=== PATIENT | female | born 1945 | race Caucasian/White ===

== ENCOUNTER 2019-06-17 19:49 | Emergency (ER) | payer OTHER, MEDICAID ==
[~2019-06-17] VITALS: Ht 162.6 cm; Wt 68.0 kg
[2019-06-17 20:03] VITALS: BP_SYST 150
--- NOTE | 2019-06-17 20:03 | NUR ---
Patient triaged and placed in ER [facility] w/ ems gurney. VSS and patient appears in no acute distress at this time. Accompanied by ems, awaiting available bed, and MD notified of need for MSE.
[2019-06-17 20:41] LABS: BASOPHILS # (AUTO) 0.1 K/uL (0.0-0.2); BASOPHILS % (AUTO) 0.7 % (0.0-2.0); EOSINOPHILS # (AUTO) 0.2 K/uL (0.0-0.4); EOSINOPHILS % (AUTO) 1.6 % (0.0-4.0); HEMATOCRIT 42.2 % (36-48); HEMOGLOBIN 13.6 g/dL (12.0-16.0); LYMPHOCYTES # (AUTO) 3.5 K/uL (1.0-5.5); LYMPHOCYTES % (AUTO) 26.5 % (20.5-51.5); MEAN CORPUSCULAR HEMOGLOBIN 32 pg (27-31); MEAN CORPUSCULAR HGB CONC 32 % (32-36); MEAN CORPUSCULAR VOLUME 99 fL (79.0-98.0); MONOCYTES # (AUTO) 1.1 K/uL (0.0-1.0); MONOCYTES % (AUTO) 8.3 % (1.7-9.3); NEUTROPHILS # (AUTO) 8.3 K/uL (1.8-7.7); NEUTROPHILS % (AUTO) 62.9 % (40.0-70.0); PLATELET COUNT (AUTO) 337 K/uL (130-430); RED BLOOD CELL COUNT(AUTO) 4.28 MIL/uL (4.2-6.2); RED CELL DISTRIBUTION WIDTH 16.8 % (9.0-15.0); WHITE BLOOD COUNT (AUTO) 13.2 K/uL (4.8-10.8)
[2019-06-17 20:55] LABS: ANION GAP 10 (5-15); CALCIUM 9.1 mg/dL (8.4-11.0); CHLORIDE 99 mmol/L (98-107); CREATININE 0.94 mg/dL (0.55-1.30); GLUCOSE 107 mg/dL (70-99); POTASSIUM 4.7 mmol/L (3.5-5.1); SODIUM SERUM 135 mmol/L (136-145); UREA NITROGEN, BLOOD 25 mg/dL (8-21)
[2019-06-17 20:59] LABS: ALANINE AMINOTRANSFERASE 7 U/L (12-78); ALBUMIN 3.3 g/dL (3.4-4.8); ASPARTATE AMINOTRANSFERASE 13 U/L (10-37); CHOLESTEROL 142 mg/dL (<200); HDL CHOLESTEROL 45 mg/dL (>55); LDL CHOLESTEROL 64 mg/dL (<100); TOTAL BILIRUBIN 0.3 mg/dL (0.0-1.0); TRIGLYCERIDES 105 mg/dL (30-150)
--- NOTE | 2019-06-17 21:00 | NUR ---
Patient to ER bed 06 to gown for evaluation. Side rails up.
--- NOTE | 2019-06-17 21:00 | NUR ---
Report given to nurse Briones.
--- NOTE | 2019-06-17 21:00 | NUR ---
Pt brought in by ambulance, alert, agitated, confused, disoriented. Pt coming from custodial facility [facility], being transferred to [facility]. pt here at [facility] for medical clearance. Staff at [facility] transitional care states that patient has been non-compliant with care, agitated, combative with staff and other residents, having multiple uncontrolled outbursts and inconsolable shouting fits. Pt presents with no pain, nausea, vomiting, diarrhea, shortness of breath, chest pain, no medical complaint at this time.
[2019-06-17 21:12] LABS: ACETAMINOPHEN < 1 ug/mL (1-30); ALCOHOL, BLOOD < 3 mg/dL (<10)
--- NOTE | 2019-06-17 21:30 | NUR ---
Pt screaming inconsolably. refusing care.
--- NOTE | 2019-06-17 22:00 | NUR ---
Pt attempting to get out of bed, screaming at staff, other patients. pt safely redirected.
--- NOTE | 2019-06-17 22:41 | NUR ---
Pt attempted to get out of bed, throwing things at staff.
--- NOTE | 2019-06-17 23:34 | NUR ---
Pt screaming at staff, patients. pt redirected.
--- NOTE | 2019-06-17 23:56 | NUR ---
Pt screaming at staff, patients, throwing sheets and clothin on floor. Pt redirected safely.
--- NOTE | 2019-06-18 00:35 | NUR ---
Patient to be transferred to [facility]. Is being transferred due to higher level of care. Receiving facility has accepting physician and available space. ER physician has signed transfer form. Patient or responsible constitution party has agreed to transfer and signed form. Patient belongings inventoried and will be sent with patient. Copy of nursing notes, lab reports, EKG, Physicians Orders and X-rays to be sent with patient. Report called to Kristen at receiving facility. Receiving physician is Roberto/Hyun. Ambulance os on scene for transfer
[2019-06-18 00:39] VITALS: BP_SYST 133
--- NOTE | 2019-06-18 00:39 | NUR ---
EMS crew loaded patient without incident, report given to ems crew. Copy of all tests, results given.
== END 2019-06-18 00:39 ==
LOC: SED 19:49
DX: F29 Unspecified psychosis not due to a substance or known physiological condition (principal); N39.0 Urinary tract infection, site not specified; F31.9 Bipolar disorder, unspecified; R45.1 Restlessness and agitation; Z88.0 Allergy status to penicillin
CPT/HCPCS: 36415; 80053; 80061; 83036; 85025; 87081; 99285; G0480; G0481; G0482

== ENCOUNTER 2019-06-22 17:47 | Inpatient (IN) | payer OTHER, MEDICAID, SELFPAY ==
[~2019-06-22] VITALS: Ht 167.6 cm; Wt 86.6 kg
[2019-06-22 17:47] VITALS: BP_SYST 148
[2019-06-22] MEDS ORDERED: NS 500 ML IV ONE (18:15)
[2019-06-22] MEDS ORDERED: MAG-123 PO (18:21)
[2019-06-22] MEDS ORDERED: ACET-2165 PO (18:21)
[2019-06-22] MEDS ORDERED: METF500S7 PO (18:21)
[2019-06-22] MEDS ORDERED: ACET-73 PO (18:21)
[2019-06-22] MEDS ORDERED: ASCO500T20 PO (18:21)
[2019-06-22] MEDS ORDERED: ZOLP5TAB2 PO (18:21)
[2019-06-22] MEDS ORDERED: GLUC1KIT IJ (18:21)
[2019-06-22] MEDS ORDERED: GLIP5TAB26 PO (18:21)
[2019-06-22] MEDS ORDERED: LORA2TAB PO (18:21)
[2019-06-22] MEDS ORDERED: LACT1CAP72 PO (18:21)
[2019-06-22] MEDS ORDERED: DIVA500T4 PO (18:21)
[2019-06-22] MEDS ORDERED: SENN-278 PO (18:21)
[2019-06-22] MEDS ORDERED: MOM PO (18:21)
[2019-06-22] MEDS ORDERED: INSU100V42 (18:21)
[2019-06-22] MEDS ORDERED: CEPH-568 PO (18:21)
[2019-06-22] MEDS ORDERED: RISP0.5T5 PO (18:21)
[2019-06-22 18:49] LABS: BASOPHILS % (AUTO) 0.2 % (0.0-2.0); EOSINOPHILS # (AUTO) 0.1 K/uL (0.0-0.4); EOSINOPHILS % (AUTO) 0.9 % (0.0-4.0); HEMATOCRIT 43.3 % (36-48); LYMPHOCYTES # (AUTO) 1.9 K/uL (1.0-5.5); LYMPHOCYTES % (AUTO) 18.2 % (20.5-51.5); MEAN CORPUSCULAR HEMOGLOBIN 32 pg (27-31); MEAN CORPUSCULAR HGB CONC 32 % (32-36); MEAN CORPUSCULAR VOLUME 99 fL (79.0-98.0); MONOCYTES # (AUTO) 0.9 K/uL (0.0-1.0); MONOCYTES % (AUTO) 8.3 % (1.7-9.3); NEUTROPHILS # (AUTO) 7.5 K/uL (1.8-7.7); NEUTROPHILS % (AUTO) 72.4 % (40.0-70.0); PLATELET COUNT (AUTO) 334 K/uL (130-430); RED BLOOD CELL COUNT(AUTO) 4.39 MIL/uL (4.2-6.2); WHITE BLOOD COUNT (AUTO) 10.3 K/uL (4.8-10.8)
[2019-06-22 19:02] LABS: ANION GAP 9 (5-15); CALCIUM 9.6 mg/dL (8.4-11.0); CHLORIDE 101 mmol/L (98-107); CREATININE 1.32 mg/dL (0.55-1.30); GLUCOSE 163 mg/dL (70-99); POTASSIUM 4.4 mmol/L (3.5-5.1); SODIUM SERUM 138 mmol/L (136-145); UREA NITROGEN, BLOOD 22 mg/dL (8-21)
[2019-06-22 19:11] LABS: ALANINE AMINOTRANSFERASE 44 U/L (12-78); ALBUMIN 3.5 g/dL (3.4-4.8); ASPARTATE AMINOTRANSFERASE 17 U/L (10-37); TOTAL BILIRUBIN 0.4 mg/dL (0.0-1.0)
[2019-06-22] MEDS ORDERED: LORazepam 2 MG/ML VIAL IVP ONE ×2 (19:15→22:00)
[2019-06-22 19:21] LABS: BILIRUBIN,URINE NEGATIVE (NEGATIVE); BLOOD, URINE NEGATIVE (NEGATIVE); COLOR,URINE YELLOW (YELLOW); GLUCOSE,URINE NEGATIVE (NEGATIVE); KETONES,URINE NEGATIVE (NEGATIVE); LEUKOCYTE ESTERASE ,URINE NEGATIVE (NEGATIVE); NITRITE, URINE NEGATIVE (NEGATIVE); PH,URINE 5.5 (5.0-8.0); PROTEIN URINE NEGATIVE (NEGATIVE); UROBILINOGEN,URINE 0.2 (0.2-1.0)
[2019-06-22 19:23] LABS: CLARITY/URINE SLIGHTLY HAZY (CLEAR)
[2019-06-22] MEDS ORDERED: DIPHENHYDRAMINE INJ 50 MG/ML VIAL IVP ONE (20:00)
[2019-06-22 20:11] LABS: PROTHROMBIN TIME 9.9 SECS (9.5-12.5)
[2019-06-22] MEDS ORDERED: NACL 0.9% 1,000 ML IV ONE (20:15)
[2019-06-22] MEDS ORDERED: INSULIN REGULAR, HUMAN 100 UNITS/ML, 10 ML VIAL (humuLIN R) SUBCUT PRN (20:30)
[2019-06-22] MEDS ORDERED: ZOLPIDEM TARTRATE 5 MG TABLET PO PRN (20:30)
[2019-06-22] MEDS ORDERED: ACETAMINOPHEN 500 MG TABLET PO PRN (20:30)
[2019-06-22] MEDS ORDERED: DEXTROSE 50% JECT 50 ML DISP.SYRIN IVP PRN (20:30)
[2019-06-22] MEDS ORDERED: DIVALPROEX SODIUM 500 MG TAB.SR.24H (DEPAKOTE ER) PO SCH (21:00)
[2019-06-22] MEDS: NACL 0.9% 1,000 ML IV SCH (21:49)
[2019-06-22 22:18] VITALS: BP_SYST 144
[2019-06-23] MEDS ORDERED: DIVALPROEX SODIUM 500 MG TAB.SR.24H (DEPAKOTE ER) PO ONE (00:26)
[2019-06-23] MEDS: LORazepam 2 MG/ML VIAL IVP PRN ×2 (06:06→16:04)
[2019-06-23] MEDS ORDERED: LORazepam 2 MG/ML VIAL IVP ONE (06:30)
[2019-06-23] MEDS ORDERED: DIVA-74 PO (07:24)
[2019-06-23] MEDS ORDERED: DIVALPROEX SODIUM 500 MG TABLET( DEPAKOTE) PO SCH (07:25)
[2019-06-23 08:00] VITALS: BP_SYST 135
[2019-06-23] MEDS: QUEtiapine FUMARATE 25 MG TABLET PO SCH ×4 (08:34→21:48)
[2019-06-23] MEDS: glipiZIDE XL 5 MG TAB ( GLUCOTROL XL) PO SCH (08:35)
[2019-06-23] MEDS: DIVALPROEX SODIUM 500 MG TABLET( DEPAKOTE) PO SCH ×2 (08:35→21:47)
[2019-06-23 08:41] LABS: CHOLESTEROL 159 mg/dL (<200); HDL CHOLESTEROL 46 mg/dL (>55); LDL CHOLESTEROL 70 mg/dL (<100); TRIGLYCERIDES 133 mg/dL (30-150)
[2019-06-23] MEDS ORDERED: METOPROLOL TARTRATE 25 MG TABLET PO ONE (10:00)
[2019-06-23] MEDS ORDERED: IPRATROPIUM BROM 0.5 MG/2.5 ML VIAL.NEB (ATROVENT) INH PRN (10:30)
[2019-06-23] MEDS: LEVOFLOXACIN 500 MG/D5W 100 ML IV SCH (10:30)
[2019-06-23] MEDS ORDERED: ALBUTEROL SULFATE 0.083% 2.5 MG/3 ML VIAL.NEB INH PRN (10:30)
[2019-06-23] MEDS: NACL 0.9% 1,000 ML IV SCH (10:41)
[2019-06-23 12:51] VITALS: BP_SYST 136
[2019-06-23] MEDS ORDERED: IPRATROPIUM BROM 0.5 MG/2.5 ML VIAL.NEB (ATROVENT) INH SCH (13:00)
[2019-06-23] MEDS ORDERED: ALBUTEROL SULFATE 0.083% 2.5 MG/3 ML VIAL.NEB INH SCH (13:00)
[2019-06-23 16:00] VITALS: BP_SYST 130
[2019-06-23] MEDS ORDERED: HALOPERIDOL LACTATE 5 MG/ML VIAL IM PRN (17:45)
[2019-06-23 19:00] VITALS: BP_SYST 137
[2019-06-23 20:00] VITALS: BP_SYST 137
[2019-06-23] MEDS: HALOPERIDOL LACTATE 5 MG/ML VIAL IM SCH (21:46)
[2019-06-23] MEDS: METOPROLOL TARTRATE 25 MG TABLET PO SCH (21:47)
[2019-06-24] VITALS: BP_SYST 116
[2019-06-24] MEDS: NACL 0.9% 1,000 ML IV SCH ×2 (00:59→05:03)
[2019-06-24 06:00] VITALS: BP_SYST 130
[2019-06-24 08:30] VITALS: BP_SYST 127
[2019-06-24] MEDS: glipiZIDE XL 5 MG TAB ( GLUCOTROL XL) PO SCH (08:55)
[2019-06-24] MEDS: QUEtiapine FUMARATE 25 MG TABLET PO SCH ×3 (08:56→21:22)
[2019-06-24] MEDS: DIVALPROEX SODIUM 500 MG TABLET( DEPAKOTE) PO SCH ×2 (08:56→21:22)
[2019-06-24] MEDS: HALOPERIDOL LACTATE 5 MG/ML VIAL IM SCH ×3 (08:58→21:23)
[2019-06-24] MEDS: METOPROLOL TARTRATE 25 MG TABLET PO SCH ×2 (09:00→21:22)
[2019-06-24] MEDS: LEVOFLOXACIN 500 MG/D5W 100 ML IV SCH (10:51)
[2019-06-24 12:12] VITALS: BP_SYST 111
[2019-06-24 12:48] LABS: PROTHROMBIN TIME 10.1 SECS (9.5-12.5)
[2019-06-24 16:27] VITALS: BP_SYST 146
[2019-06-24] MEDS: ACETAMINOPHEN 325 MG TABLET PO PRN (18:42)
[2019-06-24 20:00] VITALS: BP_SYST 135
[2019-06-25 00:34] VITALS: BP_SYST 127
[2019-06-25] MEDS: LORazepam 2 MG/ML VIAL IVP PRN ×3 (00:47→23:14)
[2019-06-25] MEDS: NACL 0.9% 1,000 ML IV SCH (05:46)
[2019-06-25 06:44] LABS: CHLORIDE 107 mmol/L (98-107); POTASSIUM 5.2 mmol/L (3.5-5.1); SODIUM SERUM 136 mmol/L (136-145)
[2019-06-25 08:00] VITALS: BP_SYST 136
[2019-06-25 08:16] LABS: BASOPHILS % (AUTO) 0.3 % (0.0-2.0); EOSINOPHILS # (AUTO) 0.3 K/uL (0.0-0.4); EOSINOPHILS % (AUTO) 3.6 % (0.0-4.0); HEMATOCRIT 39.1 % (36-48); HEMOGLOBIN 12.6 g/dL (12.0-16.0); LYMPHOCYTES # (AUTO) 1.9 K/uL (1.0-5.5); LYMPHOCYTES % (AUTO) 26.4 % (20.5-51.5); MEAN CORPUSCULAR HEMOGLOBIN 32 pg (27-31); MEAN CORPUSCULAR HGB CONC 32 % (32-36); MEAN CORPUSCULAR VOLUME 100 fL (79.0-98.0); MONOCYTES # (AUTO) 0.6 K/uL (0.0-1.0); MONOCYTES % (AUTO) 8.6 % (1.7-9.3); NEUTROPHILS # (AUTO) 4.5 K/uL (1.8-7.7); NEUTROPHILS % (AUTO) 61.1 % (40.0-70.0); PLATELET COUNT (AUTO) 266 K/uL (130-430); RED BLOOD CELL COUNT(AUTO) 3.92 MIL/uL (4.2-6.2); RED CELL DISTRIBUTION WIDTH 16.5 % (9.0-15.0); WHITE BLOOD COUNT (AUTO) 7.3 K/uL (4.8-10.8)
[2019-06-25 08:20] LABS: ALBUMIN 2.7 g/dL (3.4-4.8); CREATININE 0.75 mg/dL (0.55-1.30); UREA NITROGEN, BLOOD 15 mg/dL (8-21)
[2019-06-25] MEDS: METOPROLOL TARTRATE 25 MG TABLET PO SCH ×2 (08:56→21:52)
[2019-06-25] MEDS: DIVALPROEX SODIUM 500 MG TABLET( DEPAKOTE) PO SCH ×2 (08:56→21:51)
[2019-06-25] MEDS: QUEtiapine FUMARATE 25 MG TABLET PO SCH ×3 (08:57→21:51)
[2019-06-25] MEDS: glipiZIDE XL 5 MG TAB ( GLUCOTROL XL) PO SCH (08:57)
[2019-06-25] MEDS: HALOPERIDOL LACTATE 5 MG/ML VIAL IM SCH ×3 (08:57→21:51)
[2019-06-25 09:42] LABS: THYROID STIMULATING HORMONE 0.02 uIu/mL (0.36-3.74)
[2019-06-25] MEDS: LEVOFLOXACIN 500 MG/D5W 100 ML IV SCH (09:45)
[2019-06-25 10:27] LABS: ANION GAP 1 (5-15); CALCIUM 8.7 mg/dL (8.4-11.0); GLUCOSE 99 mg/dL (70-99)
[2019-06-25 10:28] LABS: ALANINE AMINOTRANSFERASE 35 U/L (12-78); ASPARTATE AMINOTRANSFERASE 18 U/L (10-37); TOTAL BILIRUBIN 0.6 mg/dL (0.0-1.0)
[2019-06-25 12:43] VITALS: BP_SYST 133
[2019-06-25] MEDS ORDERED: INSULIN LISPRO SLIDING SCALE 100 UNITS/ML VIAL (humaLOG) SUBCUT PRN (12:45)
[2019-06-25] MEDS ORDERED: DEXTROSE 50% JECT 50 ML DISP.SYRIN IVP PRN (12:45)
[2019-06-25 16:14] VITALS: BP_SYST 151
[2019-06-25 19:00] VITALS: BP_SYST 145
[2019-06-25 20:00] VITALS: BP_SYST 145
[2019-06-25] MEDS: D5NS 1,000 ML IV SCH (21:50)
[2019-06-26 00:30] VITALS: BP_SYST 179
[2019-06-26 07:55] VITALS: BP_SYST 152
[2019-06-26] MEDS: HALOPERIDOL LACTATE 5 MG/ML VIAL IM SCH ×3 (08:34→22:12)
[2019-06-26] MEDS: QUEtiapine FUMARATE 25 MG TABLET PO SCH ×2 (08:34→17:59)
[2019-06-26] MEDS: DIVALPROEX SODIUM 500 MG TABLET( DEPAKOTE) PO SCH ×2 (08:35→22:07)
[2019-06-26] MEDS: METOPROLOL TARTRATE 25 MG TABLET PO SCH ×2 (08:35→22:10)
[2019-06-26] MEDS: LEVOFLOXACIN 500 MG/D5W 100 ML IV SCH (10:25)
[2019-06-26] MEDS: D5NS 1,000 ML IV SCH (10:25)
[2019-06-26] MEDS: ACETAMINOPHEN 325 MG TABLET PO PRN (10:26)
[2019-06-26 12:36] VITALS: BP_SYST 155
[2019-06-26] MEDS ORDERED: QUEtiapine FUMARATE 25 MG TABLET PO ONE (14:00)
[2019-06-26 16:47] VITALS: BP_SYST 157
[2019-06-26 20:00] VITALS: BP_SYST 151
[2019-06-26] MEDS ORDERED: QUEtiapine FUMARATE 25 MG TABLET PO SCH (21:00)
[2019-06-27] MEDS: D5NS 1,000 ML IV SCH ×2 (01:07→14:50)
[2019-06-27] MEDS: LORazepam 2 MG/ML VIAL IVP PRN ×2 (01:07→11:50)
[2019-06-27 01:18] VITALS: BP_SYST 163
[2019-06-27 07:41] LABS: BASOPHILS % (AUTO) 0.5 % (0.0-2.0); EOSINOPHILS # (AUTO) 0.2 K/uL (0.0-0.4); EOSINOPHILS % (AUTO) 2.8 % (0.0-4.0); HEMATOCRIT 40.3 % (36-48); LYMPHOCYTES # (AUTO) 1.8 K/uL (1.0-5.5); LYMPHOCYTES % (AUTO) 22.3 % (20.5-51.5); MEAN CORPUSCULAR HEMOGLOBIN 32 pg (27-31); MEAN CORPUSCULAR HGB CONC 32 % (32-36); MEAN CORPUSCULAR VOLUME 99 fL (79.0-98.0); MONOCYTES # (AUTO) 0.7 K/uL (0.0-1.0); MONOCYTES % (AUTO) 8.2 % (1.7-9.3); NEUTROPHILS # (AUTO) 5.2 K/uL (1.8-7.7); NEUTROPHILS % (AUTO) 66.2 % (40.0-70.0); PLATELET COUNT (AUTO) 278 K/uL (130-430); RED BLOOD CELL COUNT(AUTO) 4.07 MIL/uL (4.2-6.2); RED CELL DISTRIBUTION WIDTH 16.4 % (9.0-15.0); WHITE BLOOD COUNT (AUTO) 7.9 K/uL (4.8-10.8)
[2019-06-27 07:55] VITALS: BP_SYST 156
[2019-06-27 07:57] LABS: ALANINE AMINOTRANSFERASE 28 U/L (12-78); ALBUMIN 2.9 g/dL (3.4-4.8); ANION GAP 4 (5-15); ASPARTATE AMINOTRANSFERASE 13 U/L (10-37); CALCIUM 8.5 mg/dL (8.4-11.0); CHLORIDE 104 mmol/L (98-107); CREATININE 0.75 mg/dL (0.55-1.30); GLUCOSE 123 mg/dL (70-99); SODIUM SERUM 137 mmol/L (136-145); TOTAL BILIRUBIN 0.5 mg/dL (0.0-1.0); UREA NITROGEN, BLOOD 11 mg/dL (8-21)
[2019-06-27] MEDS: HALOPERIDOL LACTATE 5 MG/ML VIAL IM SCH ×4 (08:48→20:24)
[2019-06-27] MEDS: METOPROLOL TARTRATE 25 MG TABLET PO SCH ×2 (08:49→20:27)
[2019-06-27] MEDS: QUEtiapine FUMARATE 25 MG TABLET PO SCH ×2 (08:49→18:01)
[2019-06-27] MEDS: DIVALPROEX SODIUM 500 MG TABLET( DEPAKOTE) PO SCH ×2 (08:49→20:23)
[2019-06-27] MEDS: LEVOFLOXACIN 500 MG/D5W 100 ML IV SCH (10:56)
[2019-06-27 12:34] VITALS: BP_SYST 131
[2019-06-27 16:25] VITALS: BP_SYST 135
[2019-06-27 20:00] VITALS: BP_SYST 158
[2019-06-27] MEDS ORDERED: QUEtiapine FUMARATE 100 MG TABLET PO SCH (21:00)
[2019-06-28 00:43] VITALS: BP_SYST 116
[2019-06-28] MEDS: D5NS 1,000 ML IV SCH ×2 (00:43→14:05)
[2019-06-28] MEDS: LORazepam 2 MG/ML VIAL IVP PRN (04:46)
[2019-06-28 08:00] VITALS: BP_SYST 152
[2019-06-28] MEDS: DIVALPROEX SODIUM 500 MG TABLET( DEPAKOTE) PO SCH (09:51)
[2019-06-28] MEDS: QUEtiapine FUMARATE 25 MG TABLET PO SCH (09:51)
[2019-06-28] MEDS: METOPROLOL TARTRATE 25 MG TABLET PO SCH (09:52)
[2019-06-28] MEDS: LEVOFLOXACIN 500 MG/D5W 100 ML IV SCH (09:54)
[2019-06-28] MEDS: HALOPERIDOL LACTATE 5 MG/ML VIAL IM SCH ×2 (09:55→14:27)
[2019-06-28 12:26] VITALS: BP_SYST 135
[2019-06-28 15:07] VITALS: BP_SYST 152
[2019-06-29] MEDS ORDERED: LEVOFLOXACIN 500 MG TABLET PO SCH (10:00)
== END 2019-06-28 15:20 | DRG 193 ==
LOC: SED 17:47 → EEVIPCON 20:23 → STU 20:23
PROVIDERS: ADMIT Internal Medicine Hospice and Palliative Medicine; ATTEND Internal Medicine Hospice and Palliative Medicine
PROC: B54MZZA Ultrasonography of Right Upper Extremity Veins, Guidance (ICD-10-PCS; principal; 2019-06-24)
PROC: 05HY33Z Insertion of Infusion Device into Upper Vein, Percutaneous Approach (ICD-10-PCS; 2019-06-24)
PROC: B54NZZA Ultrasonography of Left Upper Extremity Veins, Guidance (ICD-10-PCS; 2019-06-24)
PROC: 05HY33Z Insertion of Infusion Device into Upper Vein, Percutaneous Approach (ICD-10-PCS; 2019-06-24)
DX: J18.9 Pneumonia, unspecified organism (principal); J96.01 Acute respiratory failure with hypoxia; G93.41 Metabolic encephalopathy; E44.0 Moderate protein-calorie malnutrition; F03.91 Unspecified dementia, unspecified severity, with behavioral disturbance; F31.63 Bipolar disorder, current episode mixed, severe, without psychotic features; I10 Essential (primary) hypertension; E03.9 Hypothyroidism, unspecified; Z20.828 Contact with and (suspected) exposure to other viral communicable diseases; E11.649 Type 2 diabetes mellitus with hypoglycemia without coma; E66.9 Obesity, unspecified; F41.9 Anxiety disorder, unspecified; Z78.1 Physical restraint status; Z79.84 Long term (current) use of oral hypoglycemic drugs; Z79.899 Other long term (current) drug therapy; Z68.30 Body mass index [BMI] 30.0-30.9, adult; Z88.0 Allergy status to penicillin; Z79.4 Long term (current) use of insulin; Z11.59 Encounter for screening for other viral diseases
CPT/HCPCS: 36415; 71045; 80053; 80061; 80164-TC; 81003; 82140-TC; 82962; 83036; 83605; 83880; 84439; 84443-TC; 84480; 84484; 85025; 85379; 85610-TC; 85730-TC; 87040-TC; 87081; 93005; 93306; 96361; 96365; 96375; 97110-GP; 97530-GP; 99285; C1751; G0378; J1200; J1630; J1956; J2060; J7030; J7042; U0002

== ENCOUNTER 2019-07-01 09:15 | Inpatient (IN) | payer OTHER, MEDICAID ==
[~2019-07-01] VITALS: Ht 167.6 cm; Wt 83.9 kg
[~2019-07-01 09:15] MED LIST: ACET-2165 PO; ACET-73 PO; ASCO500T20 PO; CEPH-568 PO; DIVA-74 PO; GLIP5TAB26 PO; GLUC1KIT IJ; INSU100V42; LACT1CAP72 PO; LORA2TAB PO; MAG-123 PO; METF500S7 PO; MOM PO; RISP0.5T5 PO; SENN-278 PO; ZOLP5TAB2 PO
[2019-07-01 09:16] VITALS: BP_SYST 158
[2019-07-01] MEDS ORDERED: DILTIAZEM HCL 25 MG/5 ML VIAL IVP ONE (09:45)
[2019-07-01 10:20] LABS: BASOPHILS # (AUTO) 0.1 K/uL (0.0-0.2); BASOPHILS % (AUTO) 0.7 % (0.0-2.0); EOSINOPHILS % (AUTO) 0.1 % (0.0-4.0); HEMATOCRIT 40.1 % (36-48); HEMOGLOBIN 13.2 g/dL (12.0-16.0); LYMPHOCYTES # (AUTO) 0.9 K/uL (1.0-5.5); LYMPHOCYTES % (AUTO) 7.2 % (20.5-51.5); MEAN CORPUSCULAR HEMOGLOBIN 32 pg (27-31); MEAN CORPUSCULAR HGB CONC 33 % (32-36); MEAN CORPUSCULAR VOLUME 98 fL (79.0-98.0); MONOCYTES # (AUTO) 0.9 K/uL (0.0-1.0); MONOCYTES % (AUTO) 7.3 % (1.7-9.3); NEUTROPHILS # (AUTO) 10.9 K/uL (1.8-7.7); NEUTROPHILS % (AUTO) 84.7 % (40.0-70.0); PLATELET COUNT (AUTO) 319 K/uL (130-430); RED CELL DISTRIBUTION WIDTH 16.7 % (9.0-15.0); WHITE BLOOD COUNT (AUTO) 12.9 K/uL (4.8-10.8)
[2019-07-01 10:57] LABS: ALANINE AMINOTRANSFERASE 31 U/L (12-78); ANION GAP 8 (5-15); ASPARTATE AMINOTRANSFERASE 17 U/L (10-37); CALCIUM 9.1 mg/dL (8.4-11.0); CHLORIDE 103 mmol/L (98-107); CREATININE 1.03 mg/dL (0.55-1.30); GLUCOSE 204 mg/dL (70-99); POTASSIUM 3.9 mmol/L (3.5-5.1); SODIUM SERUM 139 mmol/L (136-145); TOTAL BILIRUBIN 0.5 mg/dL (0.0-1.0); UREA NITROGEN, BLOOD 27 mg/dL (8-21)
[2019-07-01] MEDS ORDERED: ALBU2.5V7 INH (10:57)
[2019-07-01] MEDS ORDERED: LORA-258 PO (10:57)
[2019-07-01] MEDS ORDERED: LEVO750T45 PO (11:00)
[2019-07-01] MEDS ORDERED: ASPIRIN 81 MG TAB.CHEW PO ONE (11:15)
[2019-07-01 12:30] VITALS: BP_SYST 155
[2019-07-01 13:12] VITALS: BP_SYST 155
[2019-07-01] MEDS ORDERED: ALBUTEROL SULFATE 0.083% 2.5 MG/3 ML VIAL.NEB INH PRN (16:00)
[2019-07-01] MEDS ORDERED: ACETAMINOPHEN 325 MG TABLET PO SCH (16:00)
[2019-07-01 16:03] VITALS: BP_SYST 155
[2019-07-01] MEDS ORDERED: METOPROLOL TARTRATE 25 MG TABLET PO ONE (17:00)
[2019-07-01] MEDS: LORazepam 1 MG TABLET PO SCH (18:53)
[2019-07-01 19:30] VITALS: BP_SYST 155
[2019-07-01] MEDS: SENNOSIDES/DOCUSATE SODIUM 1 TAB TABLET(SENOKOT-S) PO SCH (20:45)
[2019-07-01] MEDS: MILK OF MAGNESIA 30 ML UDC PO SCH (20:46)
[2019-07-01] MEDS: DIVALPROEX SODIUM 500 MG TABLET( DEPAKOTE) PO SCH (20:46)
[2019-07-01] MEDS: INSULIN REGULAR, HUMAN 100 UNITS/ML, 10 ML VIAL (humuLIN R) SUBCUT PRN (22:04)
[2019-07-02] MEDS: LORazepam 1 MG TABLET PO SCH ×6 (00:15→19:00)
[2019-07-02 04:00] VITALS: BP_SYST 157
[2019-07-02 06:22] LABS: ALANINE AMINOTRANSFERASE 27 U/L (12-78); ALBUMIN 2.8 g/dL (3.4-4.8); ANION GAP 7 (5-15); ASPARTATE AMINOTRANSFERASE 18 U/L (10-37); CALCIUM 8.9 mg/dL (8.4-11.0); CHLORIDE 104 mmol/L (98-107); CREATININE 0.83 mg/dL (0.55-1.30); GLUCOSE 125 mg/dL (70-99); POTASSIUM 4.2 mmol/L (3.5-5.1); SODIUM SERUM 140 mmol/L (136-145); TOTAL BILIRUBIN 0.7 mg/dL (0.0-1.0); UREA NITROGEN, BLOOD 30 mg/dL (8-21)
[2019-07-02 07:00] LABS: BASOPHILS % (AUTO) 0.4 % (0.0-2.0); EOSINOPHILS % (AUTO) 0.4 % (0.0-4.0); HEMATOCRIT 40.3 % (36-48); HEMOGLOBIN 13.1 g/dL (12.0-16.0); LYMPHOCYTES # (AUTO) 1.9 K/uL (1.0-5.5); LYMPHOCYTES % (AUTO) 16.5 % (20.5-51.5); MEAN CORPUSCULAR HEMOGLOBIN 32 pg (27-31); MEAN CORPUSCULAR HGB CONC 32 % (32-36); MEAN CORPUSCULAR VOLUME 99 fL (79.0-98.0); MONOCYTES # (AUTO) 1.1 K/uL (0.0-1.0); MONOCYTES % (AUTO) 9.6 % (1.7-9.3); NEUTROPHILS # (AUTO) 8.5 K/uL (1.8-7.7); NEUTROPHILS % (AUTO) 73.1 % (40.0-70.0); PLATELET COUNT (AUTO) 351 K/uL (130-430); RED BLOOD CELL COUNT(AUTO) 4.09 MIL/uL (4.2-6.2); RED CELL DISTRIBUTION WIDTH 16.2 % (9.0-15.0); WHITE BLOOD COUNT (AUTO) 11.6 K/uL (4.8-10.8)
[2019-07-02 07:50] VITALS: BP_SYST 154
[2019-07-02] MEDS: glipiZIDE XL 5 MG TAB ( GLUCOTROL XL) PO SCH (09:17)
[2019-07-02] MEDS: ASPIRIN 81 MG TAB.CHEW PO SCH (09:18)
[2019-07-02] MEDS: METOPROLOL TARTRATE 25 MG TABLET PO SCH ×2 (09:18→21:13)
[2019-07-02] MEDS: SENNOSIDES/DOCUSATE SODIUM 1 TAB TABLET(SENOKOT-S) PO SCH ×2 (09:18→21:13)
[2019-07-02] MEDS: DIVALPROEX SODIUM 500 MG TABLET( DEPAKOTE) PO SCH ×2 (09:18→21:12)
[2019-07-02 12:23] VITALS: BP_SYST 134
[2019-07-02 16:28] VITALS: BP_SYST 143
[2019-07-02 21:08] VITALS: BP_SYST 132
[2019-07-02] MEDS: MILK OF MAGNESIA 30 ML UDC PO SCH (21:13)
[2019-07-02] MEDS: INSULIN REGULAR, HUMAN 100 UNITS/ML, 10 ML VIAL (humuLIN R) SUBCUT PRN (21:19)
[2019-07-03 00:17] VITALS: BP_SYST 123
[2019-07-03] MEDS: LORazepam 1 MG TABLET PO PRN ×2 (03:13→22:28)
[2019-07-03 08:00] VITALS: BP_SYST 159
[2019-07-03] MEDS: ASPIRIN 81 MG TAB.CHEW PO SCH (09:24)
[2019-07-03] MEDS: DIVALPROEX SODIUM 500 MG TABLET( DEPAKOTE) PO SCH ×2 (09:24→22:27)
[2019-07-03] MEDS: METOPROLOL TARTRATE 25 MG TABLET PO SCH (09:24)
[2019-07-03] MEDS: glipiZIDE XL 5 MG TAB ( GLUCOTROL XL) PO SCH (09:24)
[2019-07-03] MEDS: SENNOSIDES/DOCUSATE SODIUM 1 TAB TABLET(SENOKOT-S) PO SCH ×2 (09:24→22:27)
[2019-07-03] MEDS: INSULIN REGULAR, HUMAN 100 UNITS/ML, 10 ML VIAL (humuLIN R) SUBCUT PRN ×2 (11:11→16:20)
[2019-07-03 12:20] VITALS: BP_SYST 155
[2019-07-03 16:31] VITALS: BP_SYST 146
[2019-07-03 20:00] VITALS: BP_SYST 140
[2019-07-03] MEDS: MILK OF MAGNESIA 30 ML UDC PO SCH (22:26)
[2019-07-03] MEDS: METOPROLOL TARTRATE 50 MG TABLET PO SCH (22:27)
[2019-07-03] MEDS ORDERED: GLUCOSE 15 GM GEL (in 37.5 GM TUBE) PO PRN (22:30)
[2019-07-03] MEDS ORDERED: DEXTROSE 50% JECT 50 ML DISP.SYRIN IVP PRN (22:30)
[2019-07-04 00:15] VITALS: BP_SYST 118
[2019-07-04 08:07] VITALS: BP_SYST 153
[2019-07-04 08:36] VITALS: BP_SYST 153
[2019-07-04] MEDS: METOPROLOL TARTRATE 50 MG TABLET PO SCH ×2 (09:08→20:57)
[2019-07-04] MEDS: SENNOSIDES/DOCUSATE SODIUM 1 TAB TABLET(SENOKOT-S) PO SCH ×2 (09:08→20:57)
[2019-07-04] MEDS: glipiZIDE XL 5 MG TAB ( GLUCOTROL XL) PO SCH (09:08)
[2019-07-04] MEDS: DIVALPROEX SODIUM 500 MG TABLET( DEPAKOTE) PO SCH ×2 (09:09→20:56)
[2019-07-04] MEDS: ASPIRIN 81 MG TAB.CHEW PO SCH (09:09)
[2019-07-04] MEDS ORDERED: LORazepam 2 MG/ML VIAL IM PRN (11:15)
[2019-07-04] MEDS ORDERED: LORazepam 2 MG/ML VIAL IVP PRN (11:30)
[2019-07-04] MEDS: INSULIN REGULAR, HUMAN 100 UNITS/ML, 10 ML VIAL (humuLIN R) SUBCUT PRN (11:39)
[2019-07-04] MEDS ORDERED: LORazepam 1 MG TABLET PO PRN (11:45)
[2019-07-04 12:05] VITALS: BP_SYST 156
[2019-07-04 16:26] VITALS: BP_SYST 158
[2019-07-04 20:00] VITALS: BP_SYST 145
[2019-07-04] MEDS: MILK OF MAGNESIA 30 ML UDC PO SCH (20:57)
[2019-07-05 08:00] VITALS: BP_SYST 131
[2019-07-05] MEDS ORDERED: OLANZapine 10 MG TAB.RAPDIS PO SCH (09:00)
[2019-07-05] MEDS: DIVALPROEX SODIUM 500 MG TABLET( DEPAKOTE) PO SCH (09:39)
[2019-07-05] MEDS: glipiZIDE XL 5 MG TAB ( GLUCOTROL XL) PO SCH (09:40)
[2019-07-05] MEDS: SENNOSIDES/DOCUSATE SODIUM 1 TAB TABLET(SENOKOT-S) PO SCH (09:40)
[2019-07-05] MEDS: METOPROLOL TARTRATE 50 MG TABLET PO SCH (09:40)
[2019-07-05] MEDS: ASPIRIN 81 MG TAB.CHEW PO SCH (09:40)
[2019-07-05] MEDS: INSULIN REGULAR, HUMAN 100 UNITS/ML, 10 ML VIAL (humuLIN R) SUBCUT PRN (11:35)
[2019-07-05 12:22] VITALS: BP_SYST 109
[2019-07-05 16:10] VITALS: BP_SYST 97
[2019-07-05 16:27] VITALS: BP_SYST 93
== END 2019-07-05 19:30 | DRG 190 ==
LOC: SED 09:15 → SMU 12:03 → STU 12:05
PROVIDERS: ADMIT Internal Medicine Hospice and Palliative Medicine; ATTEND Internal Medicine Hospice and Palliative Medicine
DX: J44.1 Chronic obstructive pulmonary disease with (acute) exacerbation (principal); I21.A1 Myocardial infarction type 2; F31.9 Bipolar disorder, unspecified; E11.9 Type 2 diabetes mellitus without complications; I10 Essential (primary) hypertension; F20.9 Schizophrenia, unspecified; F03.90 Unspecified dementia, unspecified severity, without behavioral disturbance, psychotic disturbance, mood disturbance, and anxiety; Z88.0 Allergy status to penicillin; R13.10 Dysphagia, unspecified; Z79.899 Other long term (current) drug therapy; Z79.84 Long term (current) use of oral hypoglycemic drugs; Z87.01 Personal history of pneumonia (recurrent)
CPT/HCPCS: 36415; 71045; 80053; 80164-TC; 82550-TC; 82962; 83880; 84443-TC; 84484; 85025; 87081; 93005; 96374; G0378; J1815; J2060; J3490